=== PATIENT | male | born 1990 | race African-American/Black ===

== ENCOUNTER 2017-05-15 00:09 | Emergency (ER) | payer OTHER ==
[2017-05-15 01:47] VITALS: BP 155/86; PULSE 84; TEMP 98.4; BMI 29.2
[2017-05-15] MEDS ORDERED: TOBRAMYCIN 0.3% OPHTH SOLN 5 ML BOTTLE OU ONE (02:18)
[2017-05-15] MEDS ORDERED: AZITHROMYCIN 1 GM PACKET PO ONE (02:18)
--- NOTE | 2017-05-15 02:23 | PDOC ---
History of Present Illness - General Chief Complaint: Eye Problem Stated Complaint: EYE PROBLEM Time Seen by Provider: 05/15/17 02:05 History Source: Patient - History of Present Illness Initial Comments: 05/15/17 02:19 26-year-old male complaining of bilateral eye drainage 3 days. Denies vision changes. Patient is alert having oral sex now with urination. Patient unsure of exposure to sexually transmitted disease and would like to be treated. Past History - Past Medical History Allergies/Adverse Reactions: Allergies Allergy/AdvReac Type Severity Reaction Status Date / Time No Known Allergies Allergy Verified 05/15/17 01:08 Home Medications: Ambulatory Orders Nitrofurantoin Monohyd/M-Cryst [Macrobid -] 100 mg PO BID #14 capsule 03/20/16 Tobramycin 0.3% Ophth Soln [Tobrex Ophthalmic Solution -] 1 drop OP Q4HWA #1 bottle 05/15/17 - Suicide/Smoking/Psychosocial Hx Smoking History: Never smoked Have you smoked in the past 12 months: No Information on smoking cessation initiated: No Hx Alcohol Use: No Drug/Substance Use Hx: No Substance Use Type: None Review of Systems - Review of Systems Able to Perform ROS?: Yes Is the patient limited Maldivian proficient: No Constitutional: No: Symptoms Reported, See HPI, Chills, Diaphoresis, Fever, Loss of Appetite, Malaise, Night Sweats, Weakness, Weight Stable, Unintentional Wgt. Loss, Unexplained wgt Loss, Other HEENTM: Yes: Other : Yes: Dysuria. No: Symptoms Reported, See HPI, Burning, Discharge, Frequency , Flank Pain, Hematuria, Incontinence, Pain, Urgency, Testicular Mass, Testicular Swelling, Lesions, Testicular Pain, Other *Physical Exam - Vital Signs Last Vital Signs Temp Pulse Resp BP Pulse Ox 98.4 F 84 14 155/86 99 05/15/17 01:08 05/15/17 01:08 05/15/17 01:08 05/15/17 01:08 05/15/17 01:08 - Physical Exam General Appearance: Yes: Appropriately Dressed HEENT: positive: Other (b/l eye injested with yellow drainage. pupils equal and reactive) Male Genitalia: positive: normal genitalia Medical Decision Making - Medical Decision Making 05/15/17 02:27 a: STD exposure? b/l conjunctivitis P: azithromycin/ ceftrixone tobramycin GC + UA *DC/Admit/Observation/Transfer Diagnosis at time of Disposition: Dysuria, Screen for STD (sexually transmitted disease), Acute bacterial conjunctivitis of both eyes - Discharge Dispostion Disposition: HOME - Prescriptions Prescriptions: Tobramycin 0.3% Ophth Soln [Tobrex Ophthalmic Solution -] 1 drop OP Q4HWA #1 bottle - Referrals - Patient Instructions Printed Discharge Instructions: How to Instill Eye Drops - Post Discharge Activity
[2017-05-15] MEDS ORDERED: TOBRAMYCIN 0.3% OPHTH SOLN 5 ML BOTTLE ONE (02:36)
[2017-05-15] MEDS ORDERED: AZITHROMYCIN 250 MG TABLET ONE (02:36)
[2017-05-15] MEDS ORDERED: LIDOCAINE HCL/PF 1% SDV 5ML VIAL ONE (02:36)
[2017-05-15] MEDS ORDERED: cefTRIAXone SODIUM 1 GM VIAL ONE (02:37)
--- NOTE | 2017-05-15 02:59 | PDOC ---
*Physical Exam - Vital Signs Last Vital Signs Temp Pulse Resp BP Pulse Ox 98.4 F 84 14 155/86 99 05/15/17 01:08 05/15/17 01:08 05/15/17 01:08 05/15/17 01:08 05/15/17 01:08 Medical Decision Making - Medical Decision Making 05/15/17 02:59 agree with care from TODD Wilkins *DC/Admit/Observation/Transfer Diagnosis at time of Disposition: Dysuria, Screen for STD (sexually transmitted disease), Acute bacterial conjunctivitis of both eyes - Prescriptions Prescriptions: Tobramycin 0.3% Ophth Soln [Tobrex Ophthalmic Solution -] 1 drop OP Q4HWA #1 bottle - Referrals - Patient Instructions Printed Discharge Instructions: How to Instill Eye Drops - Post Discharge Activity
[2017-05-15 03:41] LABS: URINE APPEARANCE CLEAR; URINE BILIRUBIN NEGATIVE (NEGATIVE); URINE BLOOD NEGATIVE (NEGATIVE); URINE COLOR YELLOW; URINE GLUCOSE (UA) NEGATIVE (NEGATIVE); URINE KETONE NEGATIVE (NEGATIVE); URINE NITRITE NEGATIVE (NEGATIVE); URINE PROTEIN NEGATIVE (NEGATIVE); URINE UROBILINOGEN NEGATIVE mg/dL (0.2-1.0)
[2017-05-15 09:44] LABS: URINE LEUK ESTERASE Negative (NEGATIVE)
== END 2017-05-15 04:32 | disposition home or self-care (01) ==
LOC: JER 00:09
DX: R30.0 Dysuria (principal); H10.33 Unspecified acute conjunctivitis, bilateral; Z11.3 Encounter for screening for infections with a predominantly sexual mode of transmission
CPT/HCPCS: 36415; 81003; 87491; 87591; 99281-25

== ENCOUNTER 2017-05-19 17:14 | Emergency (ER) | payer OTHER ==
--- NOTE | 2017-05-19 17:31 | PDOC ---
Rapid Medical Evaluation Time Seen by Provider: 05/19/17 17:28 Medical Evaluation: Allergies Allergy/AdvReac Type Severity Reaction Status Date / Time No Known Allergies Allergy Verified 05/19/17 17:29 12 17:29 I have performed a brief in-person evaluation of this patient. The patient presents with a chief complaint of: B/l conjunctival erythema w/ tearing and discharge x 4 days. Seen in ED and given tobramycin w/ some improvement in sxs but wants to re-evaluated Pertinent physical exam findings:b/l conjunc erythema I have ordered the following: nothing The patient will proceed to the ED for further evaluation. 05/19/17 17:32
[2017-05-19 17:32] VITALS: BP 131/96; PULSE 79; TEMP 98.1; BMI 29.2
--- NOTE | 2017-05-19 18:25 | PDOC ---
History of Present Illness - General History Source: Patient Exam Limitations: No Limitations - History of Present Illness Initial Comments: 05/19/17 18:26 Patient is a 26 year old male presents to the emergency department with a complaint of one week of eye irritation. Patient previously evaluated in this emergency department 4 days ago on 05/15/17 and was discharged with antibiotic eye drops. Patient reports using the eye drops every 4 hours as directed with mild improvement in his irritation and pain. He does report improved vision/ less blurred vision from prior visit. Reports improved tearing. Denies any allergies. <Sohan Aggarwal - Last Filed: 05/19/17 18:26> <Lolly Villa - Last Filed: 05/19/17 18:39> - General Chief Complaint: Eye Problem Stated Complaint: EYE PROBLEM Time Seen by Provider: 05/19/17 17:28 Past History <Sohan Aggarwal - Last Filed: 05/19/17 18:26> - Past Medical History COPD: No - Suicide/Smoking/Psychosocial Hx Smoking History: Never smoked Have you smoked in the past 12 months: No Information on smoking cessation initiated: No Hx Alcohol Use: No Drug/Substance Use Hx: No Substance Use Type: None <Lolly Villa - Last Filed: 05/19/17 18:39> - Past Medical History Allergies/Adverse Reactions: Allergies Allergy/AdvReac Type Severity Reaction Status Date / Time No Known Allergies Allergy Verified 05/19/17 17:29 Home Medications: Ambulatory Orders Tobramycin 0.3% Ophth Soln [Tobrex Ophthalmic Solution -] 1 drop OP Q4HWA #1 bottle 05/15/17 Erythromycin 0.5% Eye Ointment [Erythromycin 0.5% Eye Ointment -] 1 applic OU BID #1 tube 05/19/17 Review of Systems - Review of Systems Able to Perform ROS?: Yes Comments:: 05/19/17 18:26 CONSTITUTIONAL: Absent: fever, no chills, no fatigue EYES: Present: eye irritation, tearing, eye pain ENT: Absent: ear pain, no sore throat CARDIOVASCULAR: SKIN: Absent: rash NEURO: Absent: headache Is the patient limited Turkmen proficient: No <Sohan Aggarwal - Last Filed: 05/19/17 18:26> *Physical Exam - Vital Signs Last Vital Signs Temp Pulse Resp BP Pulse Ox 98.1 F 79 18 131/96 100 05/19/17 17:29 05/19/17 17:29 05/19/17 17:29 05/19/17 17:29 05/19/17 17:29 - Physical Exam Comments: 05/19/17 18:26 GENERAL: Well-appearing, well-nourished. No apparent distress. HEENT: The right eye shows a corneal abrasion approximately 8.5 mm in the centre of the eye. PERRL, EOM intact. Head is normocephalic, atraumatic CARDIOVASCULAR: Normal S1, S2. Regular rate and rhythm. SKIN: Warm, dry. No rash NEUROLOGICAL: No focal neurological deficits. <Sohan Aggarwal - Last Filed: 05/19/17 18:26> - Vital Signs Last Vital Signs Temp Pulse Resp BP Pulse Ox 98.1 F 79 18 131/96 100 05/19/17 17:29 05/19/17 17:29 05/19/17 17:29 05/19/17 17:29 05/19/17 17:29 <Lolly Villa - Last Filed: 05/19/17 18:39> Medical Decision Making - Medical Decision Making 05/19/17 18:30 A portion of this note was documented by scribe services. The chart has been reviewed by myself and I agree with the documentation as written. Medical decision making as follows: Pt. is a 26 y/o M with no PMH who presents to the ED c/o R eye pain for 4 days. Pt. was evaluated in the our ED on 05/15/17 and diagnosed with bacterial conjunctivitis and d/c'd on tobramycin drops. Pt. reports that he feels like something is in his eye. Corneal abrasion noted on flourscein stain of the R eye approximately 8.5mm located in the central eye. Will change drops to erythromycin ointment. D/C home with optho consult. <Lolly Villa - Last Filed: 05/19/17 18:39> *DC/Admit/Observation/Transfer - Attestations Scribe Attestion: 05/19/17 18:26 Documentation prepared by Sohan Aggarwal, acting as medical insurance claims processor for RANJIT Leon <Sohan Aggarwal - Last Filed: 05/19/17 18:26> - Discharge Dispostion Admit: No <AllenLolly - Last Filed: 05/19/17 18:39> Diagnosis at time of Disposition: Corneal abrasion, right Qualifiers: Encounter type: initial encounter Qualified Code(s): S05.01XA - Injury of conjunctiva and corneal abrasion without foreign body, right eye, initial encounter - Discharge Dispostion Disposition: HOME Condition at time of disposition: Good - Referrals Referrals: Yvan Jaramillo MD [Staff Physician] - - Patient Instructions Printed Discharge Instructions: DI for Corneal Abrasion Additional Instructions: You have a corneal abrasion of your right eye. This is a scratch of the eye. Please stop using the tobramycin drops, and use the erythromycin ointment in both eyes as prescribed. Use the ointment twice a day. You may take Tylenol or Motrin as needed for pain. You may also use Claritin which is [id number] to help with eye puffiness. Please follow up with ophthalmology in the next 2-3 days. You were provided a referral. Return to the emergency department if you have worsening pain, visual changes, headaches, or any changes in your symptoms. - Post Discharge Activity Forms/Work/School Notes: Back to Work
== END 2017-05-19 18:43 | disposition home or self-care (01) ==
LOC: JERFT 17:14
DX: S05.01XA Injury of conjunctiva and corneal abrasion without foreign body, right eye, initial encounter (principal)
CPT/HCPCS: 99281-25

== ENCOUNTER → 2020-08-06 | Emergency (ER) | payer SELFPAY ==
[~2020-08-06] MED LIST: AZITHROMYCIN 250 MG TABLET ONE; AZITHROMYCIN 250 MG TABLET PO ONE; ETOMIDATE 20 MG/10 ML AMPUL IVPUSH ONE; PROPOFOL 1,000,000 MCG/100 ML VIAL ONE; ROCURONIUM BROMIDE 100 MG/10 ML VIAL ONE; cefTRIAXone SODIUM 1 GM VIAL ONE
[2020-08-06 23:02] VITALS: BP 115/85; PULSE 68; TEMP 98.2; BMI 30.1
[2020-08-07 02:55] LABS: PH,URINE 6.5 (5.0-8.0); URINE APPEARANCE CLEAR; URINE BILIRUBIN NEGATIVE (NEGATIVE); URINE COLOR DK YELLOW; URINE GLUCOSE (UA) NEGATIVE (NEGATIVE); URINE KETONE TRACE (NEGATIVE); URINE LEUK ESTERASE NEGATIVE (NEGATIVE); URINE NITRITE NEGATIVE (NEGATIVE); URINE PROTEIN NEGATIVE (NEGATIVE)
[2020-08-07 03:01] LABS: EPI CELLS 5 /uL (0-25.1); HYALINE CASTS 1 /uL (0-3.1); URINE BACTERIA 71 /uL (0-1359); URINE RBC 16 /uL (0-23.9); URINE WBC 9 /uL (0-25.8)
== END | disposition home or self-care (01) ==
LOC: JER 22:42
DX: Z11.3 Encounter for screening for infections with a predominantly sexual mode of transmission (principal)
CPT/HCPCS: 36415; 81003; 86780; 87086; 87491; 87591; 99284-25

== ENCOUNTER 2020-08-13 09:54 | Emergency (ER) | payer SELFPAY ==
[2020-08-13 10:23] VITALS: BP 143/86; PULSE 67; TEMP 98.7; BMI 29.9
[2020-08-13] MEDS ORDERED: FLUCONAZOLE 50 MG TABLET PO ONE (11:00)
[2020-08-13] MEDS ORDERED: FLUCONAZOLE 150 MG TABLET PO ONE (11:03)
== END 2020-08-13 11:19 | disposition home or self-care (01) ==
LOC: JERFT 09:54
DX: N50.9 Disorder of male genital organs, unspecified (principal)
CPT/HCPCS: 99283-25

== ENCOUNTER 2021-04-22 02:55 | Emergency (ER) | payer SELFPAY ==
[2021-04-22] MEDS ORDERED: DOXYCYCLINE HYCLATE 100 MG CAPSULE PO ONE ×2 (03:08→03:32)
[2021-04-22 03:13] VITALS: BP 120/81; PULSE 76; TEMP 98.1; BMI 27.1
[2021-04-22 10:26] LABS: SYPHILIS W/ RPR CONF NON-REACTIVE (NONREACTIVE)
[2021-04-22 10:54] LABS: HIV INTERPRETATION NEGATIVE (NEGATIVE)
== END 2021-04-22 05:18 | disposition home or self-care (01) ==
LOC: JER 02:55
DX: R36.9 Urethral discharge, unspecified (principal); R30.0 Dysuria
CPT/HCPCS: 36415; 86780; 87389; 87491; 87591; 99284-25

== ENCOUNTER 2022-07-17 16:50 | Emergency (ER) | payer SELFPAY ==
[2022-07-17 17:15] VITALS: BP 131/76; PULSE 89; RESP 18; TEMP 98.2; BMI 31.3
== END 2022-07-17 18:14 | disposition home or self-care (01) ==
LOC: JERFT 16:50
PROC: 3E023GC Introduction of Other Therapeutic Substance into Muscle, Percutaneous Approach (ICD-10-PCS; principal; 2022-07-17)
DX: R30.0 Dysuria (principal); Z11.3 Encounter for screening for infections with a predominantly sexual mode of transmission
CPT/HCPCS: 36415; 87491; 87591; 99284-25